=== PATIENT | female | born 1995 | race Caucasian/White ===

== ENCOUNTER 2022-04-19 16:54 | Emergency (ER) | payer BC ==
[2022-04-19] MEDS ORDERED: Lidocaine 1% w/Epinephrine 1:100K 20 ML VIAL ONE (17:42)
[2022-04-19] MEDS ORDERED: Bacitracin 1 PK ONE (18:13)
== END 2022-04-19 18:15 | disposition home or self-care (01) ==
LOC: ERS 16:54
DX: S61.210A Laceration without foreign body of right index finger without damage to nail, initial encounter (principal); W26.0XXA Contact with knife, initial encounter; Y93.G3 Activity, cooking and baking; Z79.899 Other long term (current) drug therapy
CPT/HCPCS: 12002